=== PATIENT | male | born 1980 | race Caucasian/White ===

== ENCOUNTER 2019-10-19 14:24 | Emergency (ER) | payer OTHER, SELFPAY ==
--- NOTE | ~2019-10-19 | XR_ITS ---
EXAMINATION: XR chest 1V portable DATE: 10/19/2019 15:48 INDICATION: Left arm numbness. TECHNIQUE: A single frontal view of the chest was obtained. COMPARISON: Chest 2 views 04/05/2017, CT abdomen and pelvis 06/23/2012 FINDINGS: The chest demonstrates clear lungs without pneumonia, pleural effusion, or pneumothorax. Th e heart size is normal. IMPRESSION: 1. No acute cardiopulmonary disease. Reviewed, dictated and finalized at location A.
[2019-10-19 14:35] VITALS: BP 147/79; PULSE 88; RESP 16; TEMP 36.9; O2SAT 100
--- NOTE | 2019-10-19 15:20 | ECG_ITS ---
Measurements Intervals [place] Rate: 73 P: 55 NV: 171 QRS: 45 QRSD: 101 T: 32 QT: 341 QTc: 377 Interpretive Statements SINUS RHYTHM RSR' IN V1 OR V2, CONSIDER RIGHT VENTRICULAR HYPERTROPHY OR RIGHT VCD ABNORMAL ECG Electronically Signed On 10-19-2019 15:37:27 CDT by Felipe Cross D.O.
[2019-10-19 15:54] LABS: Basophils Absolute Auto 0.1 K/mm3 (0.0-0.1); Basophils Percent Auto 0.6 % (0.2-1.2); Eosinophils Absolute Auto 0.3 K/mm3 (0-0.3); Eosinophils Percent Auto 2.5 % (0-4.4); Hematocrit 43.6 % (42.0-52.0); Hemoglobin 14.5 g/dL (14.0-18.0); Immature Granulocyte Absolute 0.04 K/mm3 (0.00-0.031); Immature Granulocyte Percent A 0.4 % (0-0.5); Lymphocytes Absolute Auto 2.49 K/mm3 (0.9-3.2); Lymphocytes Percent Auto 24.4 % (18.3-44.2); Mean Corpuscular HGB Conc 33.3 g/dl (32-36); Mean Corpuscular Hemoglobin 28.8 pg (26-34); Mean Corpuscular Volume 86.5 fl (80-100); Mean Platelet Volume 9.9 fl (7.4-10.4); Monocytes Absolute Auto 0.7 K/mm3 (0.1-0.6); Monocytes Percent Auto 6.9 % (2.6-8.5); Neutrophils Absolute Auto 6.7 K/mm3 (1.3-6.7); Neutrophils Percent Auto 65.2 % (45.5-73.1); Platelet Count Result 224 k/mm3 (150-375); Red Blood Count 5.04 M/mm3 (4.6-6.20); Red Cell Distribution Width 13.8 % (11.5-14.5); White Blood Count 10.2 K/mm3 (4.5-10.0)
[2019-10-19 16:04] LABS: Prothrombin Time 12.8 Seconds (11.1-14.7)
[2019-10-19 16:06] LABS: Alanine Aminotransferase 17 U/L (4-50); Albumin Level 4.1 g/dL (3.5-5.1); Alkaline Phosphatase 70 U/L (38-126); Anion Gap 9.4 mmol/L (7-16); Aspartate Amino Transferase 30 U/L (17-59); Bilirubin,Total 0.2 mg/dL (0.2-1.3); Blood Urea Nitrogen 10 mg/dL (9-20); Calcium 8.8 mg/dL (8.4-10.2); Carbon Dioxide 27 mmol/L (22-30); Chloride 105 mmol/L (98-107); Estimated CRCL calculation 117 ml/min; Estimated Glomerular Filt Rate > 60; Glucose 88 mg/dL (75-110); Potassium 4.4 mmol/L (3.4-5.0); Sodium 137 mmol/L (137-145)
--- NOTE | 2019-10-19 16:11 | ED.GENADULT ---
HPI - General Adult General Chief complaint: Extremity Injury, Upper Stated complaint: left arm numb x 4 days Time Seen by Provider: 10/19/19 14:45 Source: patient Mode of arrival: ambulatory Limitations: no limitations History of Present Illness HPI narrative: Patient is a 39-year-old male who presents to emergency department for evaluation of left arm pain notices a pressure and pain from the left mid bicep down into the hand notes that it began on Saturday has remained constant nothing is made it better or worse patient denies chest pain dyspnea similar occurrence in the past or any head or neck pain. . Related Data Allergies Allergy/AdvReac Type Severity Reaction Status Date / Time Penicillins Allergy Unknown Nausea and Verified 10/19/19 14:37 Vomiting Review of Systems Review of Systems: All systems reviewed & are unremarkable except as noted in HPI and below PMFSH Past Medical History Medical History Anxiety Bipolar 1 disorder Crohn's disease Depression HTN (hypertension) Hypoglycemia IBS (irritable bowel syndrome) Leg fracture Migraine Pneumonia Rib fracture Right hand fracture Surgical History Surgical History History of cardiac catheterization Family History Family History (Updated 11/19/13 @ 07:13 by DOCTOR UNKNOWN) Grandparent Hypertension Cerebrovascular accident Family history of type 1 diabetes mellitus Mother Hypertension Father Hypertension Social History Social History Smoking status: Current every day smoker Alcohol intake: never Gender identity (if verbalized by the patient): Male Exam Narrative: Exam Narrative: GENERAL: Well-appearing, well-nourished, and in no acute distress. HEAD: Normocephalic, atraumatic. EYES: PERRLA and EOMI. ENT: Nares clear, no rhinorrhea or epistaxis. Mucous membranes moist. Oropharynx without tonsillar hypertrophy exudate or other lesions. NECK: Supple. No adenopathy or masses. CHEST: Clear to auscultation. No respiratory distress. No wheezes rales or rhonchi HEART: Regular rate and rhythm. No murmur heard. Normal peripheral pulses. ABDOMEN: Soft, nontender, nondistended EXTREMITIES: Normal range of motion. No edema. SKIN: Warm, dry, no rash. NEURO: No focal deficits. Alert and oriented x3. Cranial nerves II through XII grossly intact PSYCH: Normal mood and affect. Course Course Emergency Course: Patient in the room at this time aware of case findings treatment plan and diagnosis felt appropriate for outpatient reevaluation patient will be referred to primary care patient in the room in no distress aware of case findings treatment plan diagnosis patient felt appropriate for outpatient reevaluation is noted Vital Signs Vital signs: Vital Signs Temperature 98.5 F 10/19/19 14:35 Pulse Rate 88 10/19/19 14:35 Respiratory Rate 16 10/19/19 14:35 Blood Pressure 147/79 H 10/19/19 14:35 Pulse Oximetry 100 10/19/19 14:35 Temperature 98.5 F 10/19/19 14:35 Pulse Rate 88 10/19/19 14:35 Respiratory Rate 16 10/19/19 14:35 Blood Pressure 147/79 H 10/19/19 14:35 Pulse Oximetry 100 10/19/19 14:35 Medical Decision Making MDM Narrative Medical decision making narrative: ITS Impressions Chest X-Ray 10/19/19 15:52 IMPRESSION: 1. No acute cardiopulmonary disease. Patients EKGs and labs are without significant high risk changes. Cardiac risk factors were reviewed. Patient is felt likely to be low risk for ACS and reasonable for further risk stratification testing as an outpatient. Pain was not sudden or maximal in onset without tearing or ripping. quality. No other signs or symptoms to suggest aortic dissection. A low-risk Wells criteria is noted. PE is felt to be unlikely. No pneumonia or URI symptoms were seen on evaluation toda
[2019-10-19 16:18] LABS: Troponin I < 0.012 ng/mL (0.000-0.034)
[2019-10-19 16:25] LABS: D Dimer 0.27 ug/mL (<0.48)
[2019-10-19 17:01] VITALS: BP 118/75; PULSE 78; RESP 16; O2SAT 100
== END 2019-10-19 17:02 | disposition home or self-care (01) ==
PROVIDERS: Emergency Medicine Emergency Medical Services; Emergency Provider Emergency Medicine
DX: M79.602 Pain in left arm (principal); K50.90 Crohn's disease, unspecified, without complications; I10 Essential (primary) hypertension; F17.200 Nicotine dependence, unspecified, uncomplicated; R94.31 Abnormal electrocardiogram [ECG] [EKG]
CPT/HCPCS: 36415; 71045; 80053; 84484; 85025; 85380; 85610; 85730; 93005; 99284

== ENCOUNTER 2020-02-10 08:49 | Outpatient (CLI) | payer OTHER, SELFPAY ==
--- NOTE | 2020-02-10 11:30 | NEURO_ITS ---
Impression: # Complains of inability to raise and bend left upper extremity several months ago and now is better. # Subtle incidental evolving Carpal Tunnel Syndrome. # No ulnar neuropathy. # Normal needle/EMG exam. Nerve Conduction Studies Anti Sensory Summary Table Stim Site NR Peak (ms) P-T Amp (?V) Site1 Site2 Delta-P (ms) Dist (cm) Syd (m/s) Left Median Anti Sensory (2-3nd Digit) Wrist 3.8 27.8 Wrist 2-3nd Digit 3.8 14.0 37 Wrist 3.9 21.0 Wrist 2-3nd Digit 3.8 14.0 37 Left Radial Anti Sensory (Base 1st Digit) Wrist 2.4 18.4 Wrist Base 1st Digit 2.4 0.0 Left Ulnar Anti Sensory (5th Digit) Wrist 3.1 32.9 Wrist 5th Digit 3.1 14.0 45 Motor Summary Table Stim Site NR Onset (ms) O-P Amp (mV) Site1 Site2 Delta-0 (ms) Dist (cm) Syd (m/s) Left Median Motor (Abd Poll Brev) Wrist 3.9 4.6 Elbow Wrist 5.6 32.0 57 Elbow 9.5 4.3 Left Ulnar Motor (Abd Dig Minimi) Wrist 2.7 6.7 A Elbow Wrist 5.3 31.0 58 A Elbow 8.0 5.5 F Wave Studies NR F-Lat (ms) L-R F-Lat (ms) Left Median (Mrkrs) (Abd Poll Brev) 29.79 Left Ulnar (Mrkrs) (Abd Dig Min) 30.39 EMG Side Muscle Nerve Root Ins Act Fibs Amp Dur Recrt Comment Left 1stDorInt Ulnar C8-T1 Nml Nml Nml Nml Nml Left Ext Indicis Radial (Post Int) C7-8 Nml Nml Nml Nml Nml Left Ext Digitorum Radial (Post Int) C7-8 Nml Nml Nml Nml Nml Left BrachioRad Radial C5-6 Nml Nml Nml Nml Nml Left PronatorTeres Median C6-7 Nml Nml Nml Nml Nml Left Abd Poll Brev Median C8-T1 Nml Nml Nml Nml Nml Left Biceps Musculocut C5-6 Nml Nml Nml Nml Nml Left Triceps Radial C6-7-8 Nml Nml Nml Nml Nml Left Deltoid Axillary C5-6 Nml Nml Nml Nml Nml MTDD
== END 2020-02-10 08:50 | disposition home or self-care (01) ==
LOC: ANHNEURO 08:51
PROVIDERS: PCP Family Medicine; Visit Provider Family Medicine
DX: G83.20 Monoplegia of upper limb affecting unspecified side (principal)
CPT/HCPCS: 95886; 95909

== ENCOUNTER 2020-03-05 11:57 | Emergency (ER) | payer OTHER, SELFPAY ==
--- NOTE | ~2020-03-05 | XR_ITS ---
EXAMINATION: XR ankle LT 2V DATE: 03/05/2020 12:21 INDICATION: Lateral left ankle pain TECHNIQUE: Anteroposterior and lateral views of the left ankle were obtained. COMPARISON: None. FINDINGS: Alignment is normal. No fracture. Joint spaces are well maintained. No ankle joint effusion. Mild s oft tissue swelling overlying the lateral malleolus. IMPRESSION: 1. No osseous abnormality. Reviewed, dictated and finalized at location A. 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 No osseous abnormality.
[2020-03-05 12:03] VITALS: BP 149/50; PULSE 104; RESP 20; TEMP 36; O2SAT 99
--- NOTE | 2020-03-05 12:08 | PC.NURSE ---
patient in ED room 16 with left ankle injury. see initial notes. alert. SO in room. foot elevated on chair with ice bag. updated on current treatment plan and expected wait tiem.
[2020-03-05] MEDS: HYDROcodone/acetaminophen (*CRX) 5-325 MG TABLET 1 TAB PO (12:50)
--- NOTE | 2020-03-05 12:52 | PC.NURSE ---
pain med given. crow wrap to left foot and ankle. crutches in room. aware of current treatment plan. no fracture.
--- NOTE | 2020-03-05 13:13 | ED.LOWEXIN ---
HPI - Extremity Injury (Lower) General Chief Complaint: Extremity Injury, Lower Stated Complaint: fall/ L ankle injury Time Seen by Provider: 03/05/20 12:04 History of Present Illness HPI Narrative: Patient is a 39-year-old male who presents ER with left ankle pain. Lateral aspect. 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 He did not strike his head. Sudden onset pain. Has pain with bearing weight. No numbness or tingling. Related Data Allergies Allergy/AdvReac Type Severity Reaction Status Date / Time Penicillins Allergy Unknown Nausea and Verified 10/19/19 14:37 Vomiting Review of Systems Musculoskeletal: Musculoskeletal: Reports arthralgias and Reports joint swelling Neurologic: Denies syncope, Denies headache(s), Denies focal weakness and Denies numbness PMFSH Past Medical History Medical History (Updated 03/05/20 @ 13:19 by Dru Simons MD) Anxiety Bipolar 1 disorder Crohn's disease Depression HTN (hypertension) Hypoglycemia IBS (irritable bowel syndrome) Leg fracture Migraine Pneumonia Rib fracture Right hand fracture Surgical History Surgical History History of cardiac catheterization Family History Family History (Updated 11/19/13 @ 07:13 by DOCTOR UNKNOWN) Grandparent Hypertension Cerebrovascular accident Family history of type 1 diabetes mellitus Mother Hypertension Father Hypertension Social History Social History Smoking status: Current every day smoker Alcohol intake: never Gender identity (if verbalized by the patient): Male Exam Narrative: Exam Narrative: GENERAL: Uncomfortable-appearing, well-nourished, and in no acute distress. HEAD: Normocephalic, atraumatic. EXTREMITIES: Normal range of motion. Swelling over the lateral malleolus of the left ankle with tenderness palpation over the ATFL. Dorsalis pedis pulse intact as os the posterior tibial pulse. SKIN: Warm, dry, no rash. NEURO: No focal deficits. Alert and oriented x3. PSYCH: Normal mood and affect. Course Course Emergency Course: Patient informed of results. Giuseppe wrap applied. [place] for pain. Discussed treatment plan and patient verbalized understanding. Vital Signs Vital signs: Vital Signs Temperature 96.8 F L 03/05/20 12:03 Pulse Rate 104 H 03/05/20 12:03 Respiratory Rate 20 03/05/20 12:03 Blood Pressure 149/50 H 03/05/20 12:03 Pulse Oximetry 99 03/05/20 12:03 Temperature 96.8 F L 03/05/20 12:03 Pulse Rate 104 H 03/05/20 12:03 Respiratory Rate 20 03/05/20 12:03 Blood Pressure 149/50 H 03/05/20 12:03 Pulse Oximetry 99 03/05/20 12:03 MDM - Extremity Injury (Lower) Imaging Data Radiologist's impression: ITS Impressions Ankle X-Ray 03/05/20 12:30 IMPRESSION: 1. No osseous abnormality. Discharge Plan Discharge Clinical Impression: Ankle sprain and strain Patient Disposition: Home, Self-Care Condition: Stable Instructions: Ankle Sprain (ED), R.I.C.E. Treatment (ED) Additional Instructions: Return to the ER if you suffer additional injury, you have chest pain or shortness of breath, you have a cold/blue foot, you have additional concerns. Obtain crutches and bear weight as tolerated. Prescriptions: New naproxen 500 mg tablet 500 mg PO BID Qty: 20 RF: 0 No Action meloxicam 15 mg tablet 15 mg PO ONCE Qty: 7 RF: 0 cyclobenzaprine 10 mg tablet 10 mg PO TID PRN (Reason: muscle spasm) Qty: 14 RF: 0 Follow-up/Referrals: Alin,Aruna Craig MD [Primary Care Provider] - 1 Week Stand Alone Forms: Work/School Release IP
== END 2020-03-05 13:33 | disposition home or self-care (01) ==
PROVIDERS: Emergency Provider Emergency Medicine; PCP Family Medicine
DX: S93.402A Sprain of unspecified ligament of left ankle, initial encounter (principal); S96.912A Strain of unspecified muscle and tendon at ankle and foot level, left foot, initial encounter; W19.XXXA Unspecified fall, initial encounter; K50.90 Crohn's disease, unspecified, without complications; I10 Essential (primary) hypertension
CPT/HCPCS: 73600; 99283; A9270

== ENCOUNTER 2020-08-24 03:57 | Emergency (ER) | payer OTHER, SELFPAY ==
[2020-08-24 04:01] VITALS: BP 128/74; PULSE 75; RESP 18; TEMP 36.4; O2SAT 99
--- NOTE | 2020-08-24 04:49 | PC.NURSE ---
pt c/o right upper dental pain x 3 weeks. reports he was going to see his doctor but he went to [place] instead.
== END 2020-08-24 06:09 | disposition left against medical advice (07) ==
PROVIDERS: PCP Family Medicine
DX: R68.84 Jaw pain (principal)
CPT/HCPCS: 99199

== ENCOUNTER 2021-05-23 21:03 | Emergency (ER) | payer OTHER, SELFPAY ==
--- NOTE | ~2021-05-23 | XR_ITS ---
XR ankle RT 2V DATE: 05/23/2021 22:26 INDICATION: Injury. Lateral pain, radiating medially. TECHNIQUE: 2 portable views COMPARISON: None FINDINGS: Mild plantar calcaneal enthesopathy without erosive change or periostitis. Mild lateral soft tissue swelling. No fracture or dislocation of the ankle or disruption of the ankle mortise. No periosteal reaction or bone destruction. IMPRESSION: Mild lateral soft tissue swelling Reviewed, dictated and finalized at location A. SUPERINTENDENT
--- NOTE | ~2021-05-23 | CT_ITS ---
EXAMINATION: CT brain wo con DATE: 05/23/2021 22:33 INDICATION: Patient fell and struck head posteriorly. Patient takes aspirin daily. TECHNIQUE: Computed tomography (CT) of the head was performed without intravenous contrast. The mA wa s adjusted according to patient size. Iterative reconstruction technique was employed. Exam dose: 60 5.33 mGy-cm total exam DLP. COMPARISON: 04/05/2017 CT brain FINDINGS: No intracranial mass lesion or hemorrhage or cerebrovascular accident. No midline shift or mass effect. Normal ventricular size. No subdural or epidural hematoma. No skull fracture or bone destruction. There is patchy opacification of ethmoid air cells bilaterally. The paranasal sinuses and mastoid air cells are otherwise unremarkable. IMPRESSION: No skull fracture or acute intracranial finding Reviewed, dictated and finalized at Location A. Reviewed, dictated and finalized at location A. 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
[2021-05-23 21:57] VITALS: BP 152/107; PULSE 85; RESP 18; TEMP 36.9; O2SAT 98
[2021-05-23 22:18] VITALS: BP 122/83; PULSE 75; RESP 20; TEMP 37.1; O2SAT 100
--- NOTE | 2021-05-23 23:00 | PC.NURSE ---
Patient refused VS due to wanting to wait for doctor to see him before doing anything else .
--- NOTE | 2021-05-24 05:11 | ED.LOWEXIN ---
HPI - Extremity Injury (Lower) General Chief Complaint: Extremity Injury, Lower <Celi Borden PA-C - Last Filed: 05/24/21 05:15> Stated Complaint: right ankle injury <JEANNINE Benítez Last Filed: 05/24/21 05:15> Time Seen by Provider: 05/23/21 23:25 <Celi Borden PA-C - Last Filed: 05/24/21 05:15> Related Data Allergies/Adverse Reactions: Allergies Allergy/AdvReac Type Severity Reaction Status Date / Time Penicillins Allergy Unknown Nausea and Verified 05/23/21 22:01 Vomiting <JEANNINE Benítez Last Filed: 05/24/21 05:15> [facility] Past Medical History Medical History: Medical History Anxiety Bipolar 1 disorder Crohn's disease Depression HTN (hypertension) Hypoglycemia IBS (irritable bowel syndrome) Leg fracture Migraine Pneumonia Rib fracture Right hand fracture Tendonitis of ankle, left <JEANNINE Benítez Last Filed: 05/24/21 05:15> Surgical History Surgical History: Surgical History History of cardiac catheterization <Celi Borden PA-C - Last Filed: 05/24/21 05:15> Family History Family History: Family History Grandparent Hypertension Cerebrovascular accident Family history of type 1 diabetes mellitus Mother Hypertension Father Hypertension <JEANNINE Benítez Last Filed: 05/24/21 05:15> Social History Social History: Social History Alcohol intake: never Gender identity (if verbalized by the patient): Male <JEANNINE Benítez Last Filed: 05/24/21 05:15> Course Course Emergency Course: I spoke to patient after approximately 4 hours in the ED. He was very upset upon my initial evaluation. He insisted on leaving AMA. I expressed apologies for his long ER wait and informed him of his negative x-ray and CT scan. Patient has chosen to refuse further care. Risks of an incomplete evaluation and treatment were discussed with the patient including potential for or permanent disability were discussed with the patient. Patient seems to understand these risks, but still desires to refuse further care. Patient recommended to follow up with PCP in the next possible interval. Specifically, patient was told they can return to the ED at any time to resume care. <Celi Borden PA-C - Last Filed: 05/24/21 05:15> [employer]/PA Physician Supervision I did not see this patient but the care plan was discussed with me. I agree with the documentation as above <Giuseppe Fields MD - Last Filed: 05/24/21 06:36> Vital Signs Vital signs: Vital Signs Temperature 36.9 C 05/23/21 21:57 Pulse Rate 85 05/23/21 21:57 Respiratory Rate 18 05/23/21 21:57 Blood Pressure 152/107 H 05/23/21 21:57 Pulse Oximetry 98 05/23/21 21:57 Temperature 37.1 C 05/23/21 22:18 Pulse Rate 75 05/23/21 22:18 Respiratory Rate 20 05/23/21 22:18 Blood Pressure 122/83 05/23/21 22:18 Pulse Oximetry 100 05/23/21 22:18 <Celi Borden PA-C - Last Filed: 05/24/21 05:15> Vital Signs Temperature 36.9 C 05/23/21 21:57 Pulse Rate 85 05/23/21 21:57 Respiratory Rate 18 05/23/21 21:57 Blood Pressure 152/107 H 05/23/21 21:57 Pulse Oximetry 98 05/23/21 21:57 Temperature 37.1 C 05/23/21 22:18 Pulse Rate 75 05/23/21 22:18 Respiratory Rate 20 05/23/21 22:18 Blood Pressure 122/83 05/23/21 22:18 Pulse Oximetry 100 05/23/21 22:18 <Giuseppe Fields MD - Last Filed: 05/24/21 06:36> MDM - Extremity Injury (Lower) Imaging Data Attestation: I personally reviewed and interpreted this imaging study as follows: <Celi Borden PA-C - Last Filed: 05/24/21 05:15> Radiologist's impression: ITS Impressions Ankle X-Ray 05/23/21 22:33 IMPRESSION: M
== END 2021-05-24 00:51 | disposition left against medical advice (07) ==
PROVIDERS: Emergency Provider Emergency Medicine; PCP Family Medicine
DX: S99.911A Unspecified injury of right ankle, initial encounter (principal); F41.9 Anxiety disorder, unspecified; F31.9 Bipolar disorder, unspecified; I10 Essential (primary) hypertension; W19.XXXA Unspecified fall, initial encounter
CPT/HCPCS: 70450; 73600; 99284

== ENCOUNTER 2022-06-18 14:43 | Emergency (ER) | payer OTHER, SELFPAY ==
[2022-06-18 14:55] VITALS: BP 130/80; PULSE 93; RESP 14; TEMP 36.9; O2SAT 99
--- NOTE | 2022-06-18 15:08 | ED.EAR ---
HPI - Ear Problem General Chief complaint: Ear Stated complaint: Left Ear Irritation Time Seen by Provider: 06/18/22 15:09 Source: patient Mode of arrival: ambulatory Limitations: no limitations History of Present Illness HPI Narrative: 42-year-old male presented for complaint of left ear pain for 2 days. Endorses pain is constant, described as burning, and almost debilitating. Endorses mild nasal congestion. Has not taken anything for symptoms. He denies associated dizziness, tinnitus, nausea, vomiting, fevers or chills. MD Complaint: ear pain Related Data Allergies Allergy/AdvReac Type Severity Reaction Status Date / Time Penicillins Allergy Unknown Nausea and Verified 06/18/22 14:51 Vomiting Review of Systems Review of Systems: CONSTITUTIONAL: Denies malaise, chills, or fever. EYES: Denies visual changes, redness, or discharge. ENT: Denies rhinorrhea, congestion, sinus pain, and sore throat. Reports ear pain CARDIOVASCULAR: Denies chest pain, palpitations, or edema. RESPIRATORY: Denies cough or dyspnea. GASTROINTESTINAL: Denies abdominal pain, nausea, vomiting, diarrhea SKIN: Denies rash or itching. MUSCULOSKELETAL: Denies myalgia. NEUROLOGIC: Denies headache. All systems reviewed & are unremarkable except as noted in HPI and below PMFSH Past Medical History Medical History Anxiety Bipolar 1 disorder Crohn's disease Depression HTN (hypertension) Hypoglycemia IBS (irritable bowel syndrome) Leg fracture Migraine Pneumonia Rib fracture Right hand fracture Tendonitis of ankle, left Surgical History Surgical History History of cardiac catheterization Family History Family History Grandparent Hypertension Cerebrovascular accident Family history of type 1 diabetes mellitus Mother Hypertension Father Hypertension Social History Social History Smoking packs per day: 1.5 Smoking cigarettes per day: 30.0 Years smoked: 30 Smoking pack-years: 45.00 Smoking status: Current every day smoker Tobacco type: cigarettes Alcohol intake: never Gender identity (if verbalized by the patient): Male Comments At time of signature, agree with nursing past medical, surgical, social and family history. There is no relevant family history pertinent to the presenting complaint Exam Narrative: GENERAL: Well-appearing, well-nourished, and in no acute distress. HEAD: Normocephalic EYES: PERRLA, conjunctivae clear ENT: Nares clear. Mucous membranes moist. Right tM pearly welch with dull light reflex; left TM erythematous and bulging, no tragal or mastoid tenderness. Oropharynx normal without lesions. Tonsils not enlarged and without exudate, no drooling, no hoarseness, no trismus, uvula midline. NECK: Supple. No lymphadenopathy CHEST: Clear to auscultation, breath sounds equal. No wheezing, rhonchi, rales, or stridor. No respiratory distress, speaks in full sentences. HEART: Regular rate and rhythm. No murmur heard. SKIN: Warm, dry, no rash. NEURO: Alert and oriented x3. Course Course Emergency Course: Patient is aware of diagnosis, understands and agrees to treatment plan. Anticipatory guidance given. Patient agrees to follow-up as directed and is aware of reasons to seek care at the emergency department. Portions of this record may have been created with voice recognition software Level of Care: Express Care Visit Vital Signs Vital signs: Vital Signs Temperature 98.5 F 06/18/22 14:55 Pulse Rate 93 06/18/22 14:55 Respiratory Rate 14 06/18/22 14:55 Blood Pressure 130/80 06/18/22 14:55 Pulse Oximetry 99 06/18/22 14:55 Oxygen Delivery Room Air 06/18/22 14:55 Temperature 98.5 F 06/18/22 14:55 Pulse Rate 93 06/18/22 14:55 Respiratory Ra
== END 2022-06-18 15:18 | disposition home or self-care (01) ==
PROVIDERS: Emergency Provider Nurse Practitioner Family; PCP Family Medicine
DX: H66.002 Acute suppurative otitis media without spontaneous rupture of ear drum, left ear (principal); I10 Essential (primary) hypertension; F17.210 Nicotine dependence, cigarettes, uncomplicated
CPT/HCPCS: 99213; G0463

== ENCOUNTER 2023-05-01 07:57 | Outpatient (CLI) | payer OTHER, SELFPAY ==
--- NOTE | 2023-05-01 08:04 | ECG_ITS ---
Measurements Intervals [place] Rate: 68 P: 46 NM: 171 QRS: 25 QRSD: 113 T: 24 QT: 366 QTc: 391 Interpretive Statements SINUS RHYTHM INCOMPLETE RIGHT BUNDLE BRANCH BLOCK COMPARED TO ECG 10/19/2019 15:30:13 INCOMPLETE RIGHT BUNDLE BRANCH BLOCK NOW PRESENT Electronically Signed On 05-01-2023 15:31:16 RADAR SYSTEMS ENGINEER by Shelia Barragan M.D.
[2023-05-01 09:14] LABS: Basophils Absolute Auto 0.1 K/mm3 (0.0-0.1); Basophils Percent Auto 0.7 % (0.2-1.2); Eosinophils Absolute Auto 0.2 K/mm3 (0-0.3); Eosinophils Percent Auto 2.4 % (0-4.4); Hematocrit 47.1 % (42.0-52.0); Hemoglobin 15.2 g/dL (14.0-18.0); Immature Granulocyte Absolute 0.02 K/mm3 (0.00-0.031); Immature Granulocyte Percent A 0.2 % (0-0.5); Lymphocytes Absolute Auto 2.62 K/mm3 (0.9-3.2); Lymphocytes Percent Auto 28.6 % (18.3-44.2); Mean Corpuscular HGB Conc 32.3 g/dl (32-36); Mean Corpuscular Hemoglobin 28.4 pg (26-34); Mean Platelet Volume 9.6 fl (7.4-10.4); Monocytes Absolute Auto 0.8 K/mm3 (0.1-0.6); Monocytes Percent Auto 8.3 % (2.6-8.5); Neutrophils Absolute Auto 5.5 K/mm3 (1.3-6.7); Neutrophils Percent Auto 59.8 % (45.5-73.1); Platelet Count Result 223 k/mm3 (150-375); Red Blood Count 5.35 M/mm3 (4.6-6.20); Red Cell Distribution Width 13.7 % (11.5-14.5); White Blood Count 9.2 K/mm3 (4.5-10.0)
[2023-05-01 09:26] LABS: Alanine Aminotransferase 19 U/L (6-50); Albumin Level 3.9 g/dL (3.5-5.1); Alkaline Phosphatase 69 U/L (38-126); Anion Gap 3 mmol/L (8-16); Aspartate Amino Transferase 35 U/L (17-59); Bilirubin,Total 0.3 mg/dL (0.2-1.3); Blood Urea Nitrogen 15 mg/dL (9-20); Calcium 9.1 mg/dL (8.4-10.2); Carbon Dioxide 25 mmol/L (22-30); Chloride 110 mmol/L (98-107); Cholesterol 146 mg/dL (0-200); Estimated Glomerular Filt Rate > 60; Glucose 105 mg/dL (65-110); HDL Direct 34 mg/dL; Potassium 4.6 mmol/L (3.4-5.0); Sodium 138 mmol/L (137-145); Triglycerides 169 mg/dL (<150)
[2023-05-01 09:38] LABS: LDL Cholesterol Direct 94 mg/dL
[2023-05-01 09:56] LABS: Prostate Specific Antigen 1.1 ng/mL (< OR = 4.0)
[2023-05-06 14:41] LABS: Testosterone Free 114.2 pg/mL (35.0-155.0); Testosterone Total 631 ng/dL (250-1100)
== END 2023-05-01 07:58 | disposition home or self-care (01) ==
LOC: ANHIMG 07:59
PROVIDERS: PCP Family Medicine; Visit Provider Physician Assistant
DX: R07.9 Chest pain, unspecified (principal); R53.83 Other fatigue; Z12.5 Encounter for screening for malignant neoplasm of prostate; I10 Essential (primary) hypertension; K50.90 Crohn's disease, unspecified, without complications; Z00.00 Encounter for general adult medical examination without abnormal findings; I45.10 Unspecified right bundle-branch block
CPT/HCPCS: 36415; 80053; 80061; 82607; 84153; 84402; 84403; 84443; 85025; 93005; G0103